=== PATIENT | female | born 1965 | race Hispanic/Latino ===

== ENCOUNTER 2022-08-16 01:23 | Emergency (ER) | payer OTHER ==
[~2022-08-16] VITALS: Ht 165.1 cm; Wt 95.3 kg
[2022-08-16 01:31] VITALS: O2SAT 100
[2022-08-16] MEDS ORDERED: LOSARTAN POTAS100 MG PO (01:48)
== END 2022-08-16 01:56 | disposition home or self-care (01) ==
LOC: ER 01:28
DX: I10 Essential (primary) hypertension (principal); G47.00 Insomnia, unspecified
CPT/HCPCS: 99282